=== PATIENT | female | born 1960 | race Caucasian/White ===

== ENCOUNTER 2020-07-18 12:00 | Outpatient (RCR) | payer BC, SELFPAY ==
[2019-11-24 08:08] VITALS: BMI 30.7
[2020-07-18] MEDS: COVID-19 VACC, MRNA(PFIZER)/PF 30 MCG/0.3 ML SYRINGE IM (12:20)
[2020-08-08] MEDS: COVID-19 VACC, MRNA(PFIZER)/PF 30 MCG/0.3 ML SYRINGE IM (12:35)
== END 2020-07-18 23:59 ==
LOC: IMMUN 12:00
PROVIDERS: Visit Provider Family Medicine
DX: Z23 Encounter for immunization (principal)
CPT/HCPCS: 0001A; 0002A; 91300

== ENCOUNTER 2023-07-26 10:30 | Outpatient (RCR) | payer OTHER, SELFPAY ==
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
--- NOTE | 2023-07-26 10:53 | HP.PTREVAL ---
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 Please see the progress note below for an update on the physical therapy plan of care! Subjective Subjective: I am doing much better. Not nearly as muich intense pain. Neck is moving better. Wears sfot collar only in car. Back to doctor 08/09/23. Still avoiding bending all the way and lifting. Pain on daily basis 5/10 intermittently. Wrose in evening. Trying to do more everyday at home. Sleep is mostly OK. In recliner. Activities: basics are I, sweeping and mopping and doing laundry and cooking. Sometimes gets more painful. Avoids cleaning floor as not supposed to bend. Wants to continue HEP at home and f/u down the road. Doing 2x15 YTB strength at home, not easy but does well with it. Also neck rotations. Objective Objective/Function: 40 B rotations with contralateral stiffness. 45 extension UE AROM WFL and strength 4-/5 B. Comfortable sitting in chair. happy with progress. Plan Plan Plan: f/u two weeks to ensure progress. Possibly d/c if doing well adn doc visit goes well or general ex and possibly more ROM neck depending on doctor visit. continue toward unmet current goals and new goal. Fair prognosis. Balance/Gait/Functional tests Balance/Special Test Scores Oswestry Neck Score: 20 Goals Goals Goal 1:: 40 degrees cervical rotation without pain to aid in view once able to drive. Goal Time Frame: 4-6 Weeks Goal Progress: 40 but stiff. Goal 2:: Full UE elevation without hesitation Goal Time Frame: 4-6 Weeks Goal Progress: Goal Met Goal 3:: Pain 2/10 at worst and able to sleep 6 hours without interruption Goal Time Frame: 4-6 Weeks Goal Progress: Progressing Goal 4:: I management of condition with HEP Goal Time Frame: 4-6 Weeks Goal Progress: Goal Met Goal 5:: maintain improvements with HEP Goal Time Frame: 2-4 Weeks Goal Progress: NEW GOAL Anticipated Interventions Anticipated Interventions Patient/Client Instruction: Educate patient on: Condition and Risk Factors For the Purpose of:: To decrease pain, To increase ROM, To improve nutrient delivery to tissue, To improve muscle performance and motor function, To increase tolerance to activity/condition/position and To improve ability of physical actions for home/community/work/leisure Therapeutic Exercise to Include: Strength training, Postural training, Flexibilty training, Passive ROM and Active ROM For the Purpose of:: To decrease pain, To increase ROM, To improve nutrient delivery to tissue, To improve muscle performance and motor function, To increase tolerance to activity/condition/position and To improve ability of physical actions for home/community/work/leisure Manual Therapy Techniques to Include: Scar massage and Soft tissue mobilization For the Purpose of:: To decrease pain, To increase ROM and To improve nutrient delivery to tissue TENS: Yes Thermo therapy (hot pack): Yes For the Purpose of:: To decrease pain and To increase ROM Re-Evaluation Ending Re-evaluation ending: Please do not hesitate to contact me at [phone] by phone or if you have questions or concerns regarding this new plan of care! Sincerely, Gatito Steele, DPT, OCS, CSCS
--- NOTE | 2023-08-10 10:39 | HP.PTDCSUM ---
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 Discharge Date: 08/10/23 Please see the following information for a summary of their discharge status. Subjective Subjective: Has been doing OK. Saw doctor adn is coming along but not totally healed. X rays look good. Pain is slightly better over the last two weeks. KIMBLE now and then doc says is normal. May get a nerve block. Neck pain is worse with more activity. HEP: going well, YTB is getting easier 3x15. Sleep is not great, doctor said that is normal. Activities at home are mostly normal. Cleaning shower floor is hard to get on floor. doctor said she could take it from here at home. Pain neck pain: Pain Intensity (Out of 10): 2 Overall Improvement % Improvement: 60 Objective Objective/Function: 42 degree R rotation adn 45 L rotation with some discomfort. 55 degree extension. Posture is good today with chin back. Pt wishing to be done with PT and should do well on her own if she continues ROM and strength. OTB vended today for progression and patient understands this. Goals Goal 1:: 40 degrees cervical rotation without pain to aid in view once able to drive. Goal Progress: Goal Met Goal 2:: Full UE elevation without hesitation Goal Progress: Goal Met Goal 3:: Pain 2/10 at worst and able to sleep 6 hours without interruption Goal Progress: Progressing Goal 4:: I management of condition with HEP Goal Progress: Goal Met Goal 5:: maintain improvements with HEP Goal Progress: Goal Met Plan Plan: d/c to HEP D/C Information d/c sentence: If there are questions or concerns regarding this patient's physical therapy, please feel free to call me at [phone]. Thank you for the referral of this patient. Sincerely, Gatito Steele, DPT, OCS, CSCS Balance/Gait/Functional tests Balance/Special Test Scores Oswestry Neck Score: 18 Improvement % Improvement: 60
== END 2023-07-26 19:00 | disposition home or self-care (01) ==
LOC: PT 10:30
DX: S12.1 Fracture of second cervical vertebra (principal); Z98.1 Arthrodesis status
CPT/HCPCS: 97110; 97140; 97161; 97530